=== PATIENT | female | born 1970 | race Caucasian/White ===

== ENCOUNTER → 2019-02-03 | Outpatient (CLI) | payer OTHER ==
[~2019-02-03] MED LIST: CIPR500 PO; FLUO20 PO; HYDCHL12.5 PO; KETO10 PO; METF500 PO; MINO100 PO; MULVITA PO; NAPR500 PO; OXYACE5T PO; PROM25 PO; PROM25S PR; Percocet 5-3251 EACH PO; Valium5 MG PO
== END | disposition home or self-care (01) ==
LOC: LAB 10:00 → LAB SHORT 10:00
PROVIDERS: Nurse Practitioner
DX: Z01.419 Encounter for gynecological examination (general) (routine) without abnormal findings (principal)
CPT/HCPCS: G0145

== ENCOUNTER 2022-05-01 09:59 | Day surgery (SDC) | payer OTHER ==
[~2022-05-01] VITALS: Ht 165.1 cm; Wt 125.6 kg
[~2022-05-01 09:59] MED LIST changes: -HYDCHL12.5 PO; +HYDCHL25 PO
--- NOTE | 2022-05-01 11:34 | NUR ---
05/01/22 1134 Lisa Young IV IN LAC INFILTRATED PRIOR TO START OF PROCEDURE. ATTEMPT X1 BY RN IN RFA. NO FLASH. IV SUCCESSFULLY PLACED IN LH BY RN - 22G.
== END 2022-05-01 12:13 | disposition home or self-care (01) ==
LOC: ORSCSDS 09:59 → ORSCMMR 11:00 → ORD 11:30 → ORSCMMR 11:30 → ORSCSDS 11:30
PROVIDERS: Internal Medicine Gastroenterology
PROC: 0DBK8ZX Excision of Ascending Colon, Via Natural or Artificial Opening Endoscopic, Diagnostic (ICD-10-PCS; principal; 2022-05-01 11:30)
DX: Z12.11 Encounter for screening for malignant neoplasm of colon (principal); D12.2 Benign neoplasm of ascending colon; E66.01 Morbid (severe) obesity due to excess calories; Z68.42 Body mass index [BMI] 45.0-49.9, adult
CPT/HCPCS: 88305; J0330; J0461; J2001; J2405; J2704; J7120; Q9968

== ENCOUNTER → 2024-02-01 | Outpatient (CLI) | payer OTHER ==
[~2024-02-01] MED LIST changes: +POTA8 PO
== END ==
LOC: LAB SHORT 08:00 → LAB 08:00
DX: N39.0 Urinary tract infection, site not specified (principal)
CPT/HCPCS: 87086